=== PATIENT | male | born 1940 | race Caucasian/White ===

== ENCOUNTER 2017-06-01 10:38 | Observation (INO) ==
--- NOTE | 2017-06-01 11:28 | Emergency Department Report ---
General Adult HPI - General Chief complaint: Nausea/Vomiting/Diarrhea Stated complaint: weakness, not eating Time Seen by Provider: 06/01/17 11:28 Source: patient, family Mode of arrival: ambulatory Limitations: no limitations - History of Present Illness HPI narrative: Patient is a 76-year-old male presents emergency room for evaluation of continued nausea, weakness, not eating well. Patient's been having a 2 to three -week history of increasing nausea after eating. Not wanting to eat. Patient was evaluated in the emergency department on Monday, patient was given Zofran with moderate improvement of symptoms laboratories were noncontributory patient was discharged home follow-up with his primary medical physician. Patient did follow-up with his primary medical physician on Monday with continued symptoms with minimal improvement, primary medical physician advised patient to start drinking in sure and chicken broth and to not eat solid foods. Patient was given an outpatient appointment with general surgeon for possible EGD. Patient for the past 2 days is been doing nothing been eating and broth and in sure, increasing weakness now difficulty getting out of bed. Patient's states he is so weak he cannot ambulate ambulate. Patient brought to the ER for evaluation vital signs within defined limits. - Related Data Home Medications Medication Instructions Recorded Confirmed Amiloride/Hctz 5/50 [Moduretic 1 tab PO DAILY #0 05/04/12 06/01/17 5/50] Simvastatin 20 mg PO HS #0 05/04/12 06/01/17 Acebutolol [Sectral] 400 mg PO HS 05/28/17 06/01/17 Finasteride [Proscar] 5 mg PO HS 05/28/17 06/01/17 Pantoprazole Tab [Protonix Tab] 40 mg PO DAILY 05/28/17 06/01/17 Phenytoin Cap [Dilantin 100 mg Cap] 200 mg PO AM 05/28/17 06/01/17 Phenytoin Cap [Dilantin 100 mg Cap] 300 mg PO HS 05/28/17 06/01/17 Tamsulosin [Flomax] 0.4 mg PO DAILY 05/28/17 06/01/17 Clotrimazole/Betamethasone 1 applicatio TOP BID 06/01/17 06/01/17 [Lotrisone Cream] Ondansetron [Zofran Odt] 4 mg PO Q4HR PRN 06/01/17 06/01/17 Simethicone [Gas-X] 125 mg PO DAILY 06/01/17 06/01/17 Allergies Allergy/AdvReac Type Severity Reaction Status Date / Time No Known Allergies Allergy Verified 06/01/17 11:06 Review of Systems Constitutional: Reports: weakness. Denies: fever, chills ENT: Denies: throat pain Cardiovascular: Denies: chest pain, palpitations, dyspnea on exertion Respiratory: Denies: cough, dyspnea, wheezes Gastrointestinal: Reports: nausea. Denies: abdominal pain, vomiting Genitourinary: Denies: dysuria, frequency Musculoskeletal: Denies: back pain Neurological: Denies: headache Psychiatric: Denies: anxiety Endocrine: Denies: fatigue PFSH Patient Stated Medical History Other HEENT Yes: glasses Hiatal Hernia Yes Clinic Medical History (Last Updated 06/01/17 @ 15:34 by Jamel Patel MD) Arthritis (Acute Medical) Hiatal hernia (Acute Medical) Hyperlipidemia (Acute Medical) Hypertension (Acute Medical) Prostate cancer metastatic to bone (Acute Medical) Urologist: Dr. Collado Seizure disorder (Acute Medical) Skin cancer (Acute Medical) Family History: Family History (Last Updated 06/01/17 @ 17:21 by Altagracia Salazar MD) Father Stroke CAD (coronary artery disease) Mother Cancer of female organs Cancer of lung - Social History Smoking status: Former smoker Substance use type: does not use Physical Exam - Limitations Limitations: no limitations - General General appearance: alert, in no apparent distress - Eye Eye exam: Present: PERRL, EOMI - ENT ENT exam: Present: normal oropharynx, TM's normal bilaterally - Neck Neck exam: Present: full ROM, trachea midline - Chest Chest inspection: Present: symmetric chest wall rise. Absent: tenderness - Respiratory Respiratory exam: Present: normal lung sounds bilaterally. Absent: respiratory distress, wheezes, stridor - Cardiovascular Cardiovascular exam: Present: regular rate, normal rhythm, normal heart sounds - Abdominal Exam Abdominal exam: Present: soft, normal bowel sounds. Absent: distention, tenderness - Back Exam Back exam: Present: normal inspection - Skin Skin exam: Present: warm, dry - Neurological Exam Neurological exam: Present: alert, oriented X3 - Psychiatric Psychiatric exam: Present: normal affect, normal mood Course Vital Signs Temperature 98.2 F 06/01/17 10:41 Pulse Rate 66 06/01/17 10:41 Respiratory Rate 20 06/01/17 10:41 Blood Pressure 115/69 06/01/17 10:41 Pulse Oximetry 92 06/01/17 10:41 Temperature 98.0 F 06/01/17 13:33 Pulse Rate 60 06/01/17 13:33 Respiratory Rate 18 06/01/17 13:33 Blood Pressure 144/76 H 06/01/17 13:33 Pulse Oximetry 94 06/01/17 13:33 Medical Decision Making - MDM Narrative Medical decision making narrative: Discuss case with Dr. Salazar, patient does have slightly depressed protein levels at this time, she will admit observation status - Medical Records Medical records reviewed: Yes: I reviewed the patient's medical records. - Lab Data Lab results reviewed: Yes: I reviewed the patient's lab results. Result diagrams: 06/01/17 11:54 06/01/17 11:54 Lab Results 06/01/17 06/01/17 06/01/17 Range/Units 11:54 11:54 11:54 WBC 7.2 (4.5-11.0) T/MM3 RBC 4.52 (4.50-5.90) M/MM3 Hgb 15.2 (13.5-17.5) GM/DL Hct 42.5 (41-53) % MCV 94.0 (80-100) UM3 MCH 33.6 (26-34) UUG MCHC 35.8 (31-37) GM/DL RDW Std Deviation 44.0 (36.9-50.2) FL Plt Count 154 (130-400) T/MM3 MPV 9.8 (9.4-12.4) UM3 Immature Gran % (Auto) 0.4 (0.0-0.5) % Neut % (Auto) 72.3 H (33-66) % Lymph % (Auto) 14.5 L (23-45) % [place] % (Auto) 10.9 H (0-9.0) % Eos % (Auto) 1.5 (0-4) % Baso % (Auto) 0.4 (0-2) % Neut # (Auto) 5.2 (1.8-7.7) T/MM3 Lymph # (Auto) 1.1 (1-4.8) T/MM3 [place] # (Auto) 0.8 (0-0.8) T/MM3 Eos # (Auto) 0.1 (0-0.5) T/MM3 Baso # (Auto) 0.0 (0-0.2) T/MM3 Abs Immat Gran (auto) 0.03 (0.00-0.03) T/MM3 Turbidity < 20 (0-20) Sodium 136 (134-144) MEQ/L Potassium 3.7 (3.6-5) MEQ/L Chloride 97 L (98-107) MEQ/L Carbon Dioxide 29 (22-30) MEQ/L Anion Gap 10 (5-15) meq/L BUN 13.0 (9-20) MG/DL Creatinine 0.6 L (0.8-1.5) mg/dL GFR Calculation 130 BUN/Creatinine Ratio 22 (6-26) RATIO Glucose 117 H (75-110) MG/DL Calculated Osmolality 263 (261-280) MOSM/KG Calcium 8.7 (8.4-10.2) MG/DL Total Bilirubin 0.40 (0.20-1.30) MG/DL Icterus Index < 2 (0-7) AST 22 (17-59) U/L ALT 22 (1-50) U/L Alkaline Phosphatase 142 H (38-126) U/L Total Protein 6.1 L (6.3-8.2) g/dL Albumin 3.8 (3.5-5.0) g/dL Globulin 2.3 L (2.4-3.6) G/DL Albumin/Globulin Ratio 1.7 (1.1-2.2) RATIO Lipase 206 (23-300) U/L Specimen Hemolysis < 15 (0-25) Phenytoin 19.8 (10-20) UG/ML Disposition Clinical Impression: WEAKNESS Disposition: 02 To [facility] Condition: Stable - Seen By: physician
[2017-06-01] MEDS ORDERED: NS 1,000 ML IV ONE (11:39)
[2017-06-01] MEDS ORDERED: METOCLOPRAMIDE 10mg/2ml INJECTION IVP ONE (11:39)
[2017-06-01] MEDS ORDERED: SALINE FLUSH 10ml SYRINGE IVF PRN (11:39)
[2017-06-01 13:40] VITALS: BMI 26.7
[2017-06-01] MEDS ORDERED: METOCLOPRAMIDE 10mg/2ml INJECTION IVP PRN (15:15)
[2017-06-01] MEDS ORDERED: SIMETHICONE 125 MG CAPSULE PO PRN (15:24)
--- NOTE | 2017-06-01 15:40 | General Surgery Consult Note ---
Consult date: 06/01/17 Attending Physician: Altagracia Salazar MD Reason for consult: other (early satiety) [facility] Medical History (Last Updated 06/01/17 @ 15:34 by Jamel Patel MD) Arthritis (Acute Medical) Hiatal hernia (Acute Medical) Hyperlipidemia (Acute Medical) Hypertension (Acute Medical) Prostate cancer metastatic to bone (Acute Medical) Urologist: Dr. Collado Seizure disorder (Acute Medical) Skin cancer (Acute Medical) Surgical History: * Prostate radiation seed placement. * Prostate biopsy - 12/2015. * Laparoscopic cholecystectomy - 05/08/[address] Loving. * Colonoscopy - 05/02/[address] Loving. * Laparotomy - 05/05/1994 exploratory laparotomy with release of small bowel obstruction. * Right inguinal hernia repair - 08/25/[address] Jim Dickerson. * Vasectomy - 1980 - Social History Smoking status: Former smoker Substance use type: does not use Alcohol intake frequency: former alcohol drinker Social history: . 5 children (plus 4 step children - 2 now ). Daughter - Katie Gonzalez (DPOA), Son - Domenic Manuel (Scott) (DPOA). PCP - Dr. Beebe Medications Home Medications Medication Instructions Recorded Confirmed Type Amiloride/Hctz 5/50 [Moduretic 1 tab PO DAILY #0 05/04/12 06/01/17 History 5/50] Simvastatin 20 mg PO HS #0 05/04/12 06/01/17 History Acebutolol [Sectral] 400 mg PO HS 05/28/17 06/01/17 History Finasteride [Proscar] 5 mg PO HS 05/28/17 06/01/17 History Pantoprazole Tab [Protonix Tab] 40 mg PO DAILY 05/28/17 06/01/17 History Phenytoin Cap [Dilantin 100 mg Cap] 200 mg PO AM 05/28/17 06/01/17 History Phenytoin Cap [Dilantin 100 mg Cap] 300 mg PO HS 05/28/17 06/01/17 History Tamsulosin [Flomax] 0.4 mg PO DAILY 05/28/17 06/01/17 History Clotrimazole/Betamethasone 1 applicatio TOP BID 06/01/17 06/01/17 History [Lotrisone Cream] Ondansetron [Zofran Odt] 4 mg PO Q4HR PRN 06/01/17 06/01/17 History Simethicone [Gas-X] 125 mg PO DAILY 06/01/17 06/01/17 History Allergies Allergy/AdvReac Type Severity Reaction Status Date / Time No Known Allergies Allergy Verified 06/01/17 11:06 Review of Systems 10-point ROS: negative except for HPI and the following: - Musculoskeletal Musculoskeletal: Present: joint pain - Neurological Neurological: Present: seizures - Vital Signs Last Vital Signs Temp 98.0 F 06/01/17 13:33 Pulse 60 06/01/17 13:33 Resp 18 06/01/17 13:33 BP 144/76 H 06/01/17 13:33 Pulse Ox 94 06/01/17 13:33 - Laboratory Result Diagrams: 06/01/17 11:54 06/01/17 11:54 Hospital Course Summary Disclaimer: The visit summary below is not to be considered part of the above Progress Note.
[2017-06-01] MEDS: PANTOPRAZOLE 40 MG INJECTION IVP SCH (15:53)
[2017-06-01] MEDS: LR 1,000 ML IV SCH ×2 (15:53→23:39)
--- NOTE | 2017-06-01 19:12 | History & Physical Report ---
History of Present Illness Date: 06/01/17 Chief complaint: nausea/dry heaves HPI: Mr. Manuel is a 76 yo male with hx of metastatic prostate Ca who has a 3 week history of feeling uncomfortable after eating. He describes a sensation of discomfort in the upper abdomen without indigestion or pain; he feels as though he is excessively full and that food sits in his stomach and doesn't move forward. He was unsure if he was constipated and tried of bottle of mag citrate one week ago resulting in diarrhea but no change in abdominal symptoms. He's decreased oral intake to minimize this sensation without relief. 4 days prior to admission he was able to eat breakfast without difficulty but subsequently developed nausea and recurrent dry heaves prompting him to present to the emergency room where he x-rays were obtained and reported to the patient as demonstrating excess gas. He was started on Zofran to control nausea and has been using [id number] simethicone to decrease gas. 3 days ago he was able to eat somewhat; 2 days ago he had recurrent dry heaves and nausea prompting visit with Dr. Beebe at which time converting to a liquid diet was recommended. Yesterday the patient tried liquids in the morning but later ate a few bites of the hamburger and some fries and additional solid food at dinner time without difficulty only to have recurrent nausea and feeling full this morning. His daughter reports that he's had significant weight loss over the past 3 months with 12 pound weight loss over the past couple of weeks. Patient denies indigestion or heartburn. Reports he simply "feels full" all the time. He denies lightheadedness but his daughter reports he was unsteady on his feet this morning. Patient reports urine output and color have remained normal. Daughter reports the patient was lethargic this morning before IV fluids were administered in the emergency room. Patient presented to the emergency room again today due to inability to maintain effective oral intake and was hospitalized for further evaluation. He has a history of peptic ulcer disease previously treated with a PPI the patient discontinued at some point in recent months. He reports that when he had an ulcer he was unable to eat. He has a known hiatal hernia. He denies chronic constipation, diarrhea, melena, rectal bleeding, or hematemesis. Review of Systems All systems PM: 10-point ROS was reviewed, no additional remarkable complaints except (pain in his low back related to metastatic prostate cancer which was diagnosed recently and is being treated with Lupron; moderately severe pain at the left hip which is [id number], a rash on his lower extremities with new lesions identified on the abdomen and back which Dr. Beebe started an antifungal cream for recently. No further positive symptoms were described outside those reported in history of present illness.) Past Medical History Medical History: Medical History (Last Updated 06/01/17 @ 15:34 by Jamel Patel MD) Arthritis Hiatal hernia Hyperlipidemia Hypertension Prostate cancer metastatic to bone Urologist: Dr. Collado Seizure disorder Skin cancer Surgical History: * Prostate radiation seed placement. * Prostate biopsy - 12/2015. * Laparoscopic cholecystectomy - 05/08/[address] Loving. * Colonoscopy - 05/02/[address] Loving. * Laparotomy - 05/05/1994 exploratory laparotomy with release of small bowel obstruction. * Right inguinal hernia repair - 08/25/[address] Jim Dickerson. * Vasectomy - 1980 Family History: Family History (Last Updated 06/01/17 @ 17:21 by Altagracia Salazar MD) Father Stroke CAD (coronary artery disease) Mother Cancer of female organs Cancer of lung Family History: As Above - Social History Smoking status: Former smoker (one pack per day for approximately 50 years, discontinued 15-20 years ago) Substance use type: does not use Alcohol intake frequency: former alcohol drinker Current occupational status: retired (production welder) Social history: PCP-Dr. Beebe DPOA-daughter Katie Gonzalez and son Tyler Manuel DO NOT RESUSCITATE Medications Home Medications Medication Instructions Recorded Confirmed Type Amiloride/Hctz 5/50 [Moduretic 1 tab PO DAILY #0 05/04/12 06/01/17 History 5/50] Simvastatin 20 mg PO HS #0 05/04/12 06/01/17 History Acebutolol [Sectral] 400 mg PO HS 05/28/17 06/01/17 History Finasteride [Proscar] 5 mg PO HS 05/28/17 06/01/17 History Pantoprazole Tab [Protonix Tab] 40 mg PO DAILY 05/28/17 06/01/17 History Phenytoin Cap [Dilantin 100 mg Cap] 200 mg PO AM 05/28/17 06/01/17 History Phenytoin Cap [Dilantin 100 mg Cap] 300 mg PO HS 05/28/17 06/01/17 History Tamsulosin [Flomax] 0.4 mg PO DAILY 05/28/17 06/01/17 History Clotrimazole/Betamethasone 1 applicatio TOP BID 06/01/17 06/01/17 History [Lotrisone Cream] Ondansetron [Zofran Odt] 4 mg PO Q4HR PRN 06/01/17 06/01/17 History Simethicone [Gas-X] 125 mg PO DAILY 06/01/17 06/01/17 History Allergies Allergy/AdvReac Type Severity Reaction Status Date / Time No Known Allergies Allergy Verified 06/01/17 11:06 Exam Vital Signs: Temperature 98.0 F 06/01/17 13:33 Pulse Rate 60 06/01/17 13:33 Respiratory Rate 18 06/01/17 13:33 Blood Pressure 144/76 H 06/01/17 13:33 Pulse Oximetry 94 - RA 06/01/17 13:33 EXAM: General-NAD, alert, fluent speech HEENT-PERRL, EOMI without nystagmus, conjugate gaze, conjunctiva clear, sclera anicteric, facial structures symmetric, oropharynx clear, neck supple and without adenopathy Lungs-respirations nonlabored, good airflow, breath sounds clear Cardiac-regular rhythm, S1-S2 Abd-moderately distended, soft, nontender, bowel sounds present Ext-trace edema bilateral lower extremities Skin-scattered irregular, scaly erythematous plaques measuring 1-2 cm across the lower abdomen; I did not appreciate any on the back or lower extremities Neuro-repetitive lip licking, Psych-anxious, cooperative Height/Weight/BMI: Height 1.78 m Weight 84.5 kg Body Mass Index 26.7 Results - Labs CBC & Chem 7: 06/01/17 11:54 06/01/17 11:54 Labs: Liver enzymes notable only for mild elevation alk phos at 142, lipase 206 Dilantin level 19.8 - Imaging and Cardiology Abdominal x-ray Status: image reviewed by me (abdominal films obtained in the emergency room 4 days ago reviewed by myself demonstrating a large hiatal hernia, increased bowel gas without evidence of obstruction, possible left lower lobe airspace disease/atelectasis.) Assessment and Plan (1) Nausea & vomiting Current visit: Yes Status: Acute (2) Weight loss Current visit: Yes Status: Acute Assessment and Plan: Assessment: Nausea/vomiting Weight loss Hiatal hernia Metastatic prostate cancer, bone metastases diagnosed 03/09 DJD Anxiety hx seizures HTN hx PUD Plan: Patient is hospitalized for hydration and possible EGD. Dr. Patel consulted. X-ray demonstrated a large hiatal hernia may be contributing to symptoms in and of itself. Also has history of peptic disease which presented with inability to eat similar to current presentation. PPI will be resumed with IV administration initially. Clear liquid diet initially, nothing by mouth overnight. Discussed with Dr. Patel who tentatively plans EGD tomorrow. I am concerned that anxiety regarding recent diagnosis of metastatic cancer may be a component in patient's presentation or that metastatic cancer and anorexia associated with cancer may be a factor. Patient has documented 2.8 kg weight loss since 05/28 and patient's daughter describes ongoing weight loss over the past 3 months. Dilantin level does not suggest Dilantin toxicity is a factor so it will be continued as will acebutolol for blood pressure but diuretic/amlodipine combination will be held initially. Patient will return to the care of Dr. Beebe at completion of hospitalization; DO NOT RESUSCITATE order written at patient's request. DVT Prophylaxis: SCD's GI Prophylaxis: Protonix Resuscitation Status: Do Not Resuscitate - Physician Narrative Narrative: Date: 06/01/17 Time: 1905 Hospital Course Summary Disclaimer: The visit summary below is not to be considered part of the above Progress Note. Hospital Course: 06/01/17 Patient is hospitalized for hydration and possible EGD. Dr. Patel consulted. X-ray demonstrated a large hiatal hernia may be contributing to symptoms in and of itself. Also has history of peptic disease which presented with inability to eat similar to current presentation. PPI will be resumed with IV administration initially. Clear liquid diet initially, nothing by mouth overnight. Discussed with Dr. Patel who tentatively plans EGD tomorrow. I am concerned that anxiety regarding recent diagnosis of metastatic cancer may be a component in patient's presentation or that metastatic cancer and anorexia associated with cancer may be a factor. Patient has documented 2.8 kg weight loss since 05/28 and patient's daughter describes ongoing weight loss over the past 3 months. Dilantin level does not suggest Dilantin toxicity is a factor so it will be continued as will acebutolol for blood pressure but diuretic/amlodipine combination will be held initially.
[2017-06-01] MEDS: BETAMETHASONE TOP SCH (20:05)
[2017-06-01] MEDS: CLOTRIMAZOLE TOP SCH (20:05)
[2017-06-01] MEDS: POM TAMSULOSIN 0.4 MG CAPSULE PO SCH (20:05)
[2017-06-01] MEDS ORDERED: ACEBUTOLOL 200 MG PO SCH (21:00)
[2017-06-01] MEDS ORDERED: POM SIMVASTATIN 20 MG TABLET PO SCH (21:00)
[2017-06-01] MEDS ORDERED: FINASTERIDE 5 MG PO SCH (21:00)
[2017-06-01] MEDS ORDERED: PHENYTOIN 100 MG PO SCH (21:00)
[2017-06-02] MEDS: ONDANSETRON 4 MG/2 ML INJECTION IVP PRN ×2 (07:10→13:46)
[2017-06-02] MEDS: PANTOPRAZOLE 40 MG INJECTION IVP SCH (08:16)
[2017-06-02] MEDS: LR 1,000 ML IV SCH ×2 (08:16→18:32)
[2017-06-02] MEDS: BETAMETHASONE TOP SCH (08:16)
[2017-06-02] MEDS: CLOTRIMAZOLE TOP SCH (08:16)
[2017-06-02] MEDS: POM TAMSULOSIN 0.4 MG CAPSULE PO SCH (08:17)
[2017-06-02] MEDS ORDERED: ACEBUTOLOL 200 MG PO SCH (09:00)
[2017-06-02] MEDS ORDERED: PHENYTOIN 100 MG PO SCH (09:00)
[2017-06-02] MEDS: LIDOCAINE 1% 2ml INJ 10 MG, POTASSIUM CHLORIDE INJ 10 MEQ in NS 100 ML IV SCH ×4 (09:36→14:49)
[2017-06-02] MEDS ORDERED: TAMSULOSIN 0.4 MG CAPSULE PO SCH (10:07)
[2017-06-02] MEDS ORDERED: LR 1,000 ML IV SCH (10:45)
--- NOTE | 2017-06-02 11:55 | Progress Note ---
- Date 06/02/17 Subjective: Patient is seen this morning sitting up in the chair. He reports he is feeling better. He's had no abdominal pain/tightness today. He has had clear liquids this morning and states he's having his EGD at noon with Dr. Patel. Last BM was the day before yesterday. No CP, SOA, vomiting or diarrhea. Objective Vital signs: Temperature 97 F 06/02/17 07:13 Pulse Rate 69 06/02/17 07:19 Respiratory Rate 18 06/02/17 07:13 Blood Pressure 149/73 H 06/02/17 07:19 Pulse Oximetry 91 06/02/17 07:19 Height/Weight/BMI: Height 1.78 m Weight 84.6 kg Body Mass Index 26.7 - Constitutional Present: no acute distress, well nourished, well developed - Routine HEENT Exam Head: Present: normocephalic, atraumatic - Routine Respiratory Exam Present: CTA bilaterally. Absent: wheezes - Routine Cardiovascular Exam Present: RRR, no murmur - Routine Abdominal Exam Present: soft, non distended, non tender - Routine Extremities Exam Present: no edema, normal capillary refill - Routine Skin Exam Present: dry, warm - Routine Neurological Exam Present: alert, oriented X3 - Routine Lymphatic Exam Lymphatic: Absent: adenopathy - Routine Psychiatric Exam Present: normal affect, cooperative Results - Labs CBC & Chem 7: 06/02/17 04:45 06/02/17 04:45 Assessment and Plan (1) Weight loss Status: Acute (2) Nausea & vomiting Status: Acute Assessment and Plan: Assessment: Nausea/vomiting Weight loss Hypokalemia - not POA Hiatal hernia Metastatic prostate cancer, bone metastases diagnosed 03/09 DJD Anxiety hx seizures HTN hx PUD Plan: Although patient was not NPO overnight, nurses confirmed with surgeon that he will go ahead with EGD at noon today. KCl 40mEq replaced IV for potassium of 3.2. Further plans to be determined after EGD. - Physician Narrative Physician: Altagracia Salazar MD Narrative: Date: 06/02/17 Time: 2144 Please refer to my note on the discharge summary. Hospital Course Summary Disclaimer: The visit summary below is not to be considered part of the above Progress Note. Hospital Course: 06/01/17 Patient is hospitalized for hydration and possible EGD. Dr. Patel consulted. X-ray demonstrated a large hiatal hernia may be contributing to symptoms in and of itself. Also has history of peptic disease which presented with inability to eat similar to current presentation. PPI will be resumed with IV administration initially. Clear liquid diet initially, nothing by mouth overnight. Discussed with Dr. Patel who tentatively plans EGD tomorrow. I am concerned that anxiety regarding recent diagnosis of metastatic cancer may be a component in patient's presentation or that metastatic cancer and anorexia associated with cancer may be a factor. Patient has documented 2.8 kg weight loss since 05/28 and patient's daughter describes ongoing weight loss over the past 3 months. Dilantin level does not suggest Dilantin toxicity is a factor so it will be continued as will acebutolol for blood pressure but diuretic/amlodipine combination will be held initially. 06/02/17 Although patient was not NPO overnight, nurses confirmed with surgeon that he will go ahead with EGD at noon today. KCl 40mEq replaced IV for potassium of 3.2. Further plans to be determined after EGD.
[2017-06-02] MEDS ORDERED: FAMOTIDINE PB 20 MG/50 ML BAG IV ONE (12:04)
--- NOTE | 2017-06-02 12:10 | Anesthesia Preoperative Report ---
Anesthesia Preoperative Record - Date and Time Date: 06/02/17 Preoperative Diagnosis: weakness,not eatting NPO Since Date: 06/02/17 NPO Since Time: 10:00 (clear liquid diet) Allergies/Adverse Reactions: Allergies Allergy/AdvReac Type Severity Reaction Status Date / Time No Known Allergies Allergy Verified 06/01/17 11:06 - Vital Signs Vital Signs: Temperature 97.8 F 06/02/17 11:48 Pulse Rate 68 06/02/17 11:48 Respiratory Rate 11 06/02/17 11:48 Blood Pressure 163/71 H 06/02/17 11:48 Pulse Oximetry 96 06/02/17 11:48 Height and Weight: Height 1.78 m Weight 84.6 kg Body Mass Index 26.7 - Medications Inpatient Medications: Current Medications Acebutolol HCl (Sectral) 400 mg PO DAILY [facility] Last Admin: 06/02/17 08:16 Dose: 400 mg Betamethasone/Clotrimazole (Lotrisone Cream) 1 applic TOP BID [facility] Last Admin: 06/02/17 08:16 Dose: 1 applic Finasteride (Proscar) 5 mg PO HS [facility] Last Admin: 06/01/17 20:08 Dose: 5 mg Lactated Ringer's (Lactated Ringers) 1,000 mls @ 50 mls/hr IV .Q20H LEXX Last Infusion: 06/02/17 10:44 Dose: 0 mls/hr Lidocaine HCl 10 mg/ Potassium Chloride 10 meq/ Sodium Chloride 100 mls @ 100 mls/hr IV .Q1H LEXX Stop: 06/02/17 13:28 Last Admin: 06/02/17 11:54 Dose: 100 mls/hr Lactated Ringer's (Lactated Ringers) 1,000 mls @ 50 mls/hr IV .Q20H LEXX Last Admin: 06/02/17 11:55 Dose: 50 mls/hr Famotidine/Sodium Chloride (Pepcid Premix) 20 mg in 50 mls @ 100 mls/hr IV PREOP ONE Stop: 06/02/17 12:33 Metoclopramide HCl (Reglan) 5 mg IVP Q6H PRN Ondansetron HCl (Zofran) 4 mg IVP Q6H PRN PRN Reason: Nausea &/or vomiting Last Admin: 06/02/17 07:10 Dose: 4 mg Pantoprazole Sodium (Protonix Iv) 40 mg IVP DAILY [facility] Last Admin: 06/02/17 08:16 Dose: 40 mg Phenytoin Sodium (Dilantin 100 Mg Cap) 200 mg PO DAILY [facility] Last Admin: 06/02/17 08:17 Dose: 200 mg Phenytoin Sodium (Dilantin 100 Mg Cap) 300 mg PO HS [facility] Last Admin: 06/01/17 20:06 Dose: 300 mg Simethicone (Phazyme) 125 mg PO DAILY PRN PRN Reason: Gas Simvastatin (Zocor) 20 mg PO HS [facility] Last Admin: 06/01/17 20:08 Dose: 20 mg Sodium Chloride (Iv Flush) 10 - 80 ml IVF PRN PRN PRN Reason: Flushing Last Admin: 06/01/17 11:56 Dose: 10 ml Tamsulosin HCl (Flomax) 0.4 mg PO DAILY [facility] Last Admin: 06/02/17 10:23 Dose: Not Given Home Medications: Home Medications Medication Instructions Recorded Confirmed Type Amiloride/Hctz 5/50 [Moduretic 1 tab PO DAILY #0 05/04/12 06/01/17 History 5/50] Simvastatin 20 mg PO HS #0 05/04/12 06/01/17 History Acebutolol [Sectral] 400 mg PO HS 05/28/17 06/01/17 History Finasteride [Proscar] 5 mg PO HS 05/28/17 06/01/17 History Pantoprazole Tab [Protonix Tab] 40 mg PO DAILY 05/28/17 06/01/17 History Phenytoin Cap [Dilantin 100 mg Cap] 200 mg PO AM 05/28/17 06/01/17 History Phenytoin Cap [Dilantin 100 mg Cap] 300 mg PO HS 05/28/17 06/01/17 History Tamsulosin [Flomax] 0.4 mg PO DAILY 05/28/17 06/01/17 History Clotrimazole/Betamethasone 1 applicatio TOP BID 06/01/17 06/01/17 History [Lotrisone Cream] Ondansetron [Zofran Odt] 4 mg PO Q4HR PRN 06/01/17 06/01/17 History Simethicone [Gas-X] 125 mg PO DAILY 06/01/17 06/01/17 History Is Patient on Beta Luis F?: Yes Beta Luis F Last Dose Date/Time: 06/01/17 - Medical History Respiratory: Reports: Chronic Obstructive Pulmonary Disease (COPD) ( pressumptive with tobacco abuse history of 50 year alban ) DENIES: Sleep Apnea Cardiovascular: Reports: Hypertension Gastrointestional: Reports: Gastroesophageal Reflux Disease, Hiatal Hernia Neuro/Musculoskeletal: Reports: Seizures (last episode 20 years ago), Other ( mets to bone) Other History: Reports: Cancer (prostate with mets to bone) - Surgical History GI Surgery/Treatments: Reports: Cholecystectomy Surgery/Treatment: REPORT: Other (prostate cancer with mets to bone) Reproductive Surgery/Treatment: Reports: Other (prostate cancer) Anesthesia Reactions: None Hx Family Anesthesia Reaction: No History of Motion Sickness: No - Social History Smoking Status: Former smoker (one pack per day for approximately 50 years, discontinued 15-20 years ago) Packs per day: 1 Pack-years: 50 Substance Use Type: does not use Alcohol Intake Frequency: former alcohol drinker - Pertinent Findings Laboratory: CBC and BMP 06/02/17 04:45 06/02/17 04:45 BMP 06/02/17 04:45 Sodium 138 Potassium 3.2 L Chloride 99 Carbon Dioxide 30 BUN 8.0 L Creatinine 0.6 L Glucose 107 Calcium 8.2 L Liver Function 06/02/17 Range/Units 04:45 Albumin 3.4 L (3.5-5.0) g/dL EKG: Sinus Dysrhythmia - Physical Exam Respiratory Exam: Present: lungs clear, bilateral breath sounds equal Cardiovascular Exam: Present: regular rate and rhythm - Airway Assessment Mallampati Score: II TMD: 3 Fingerbreadths Neck Extension: fair Teeth: chipped teeth/crowns, poor dentation Overall Assessment: no airway concerns - ASA ASA Score: 3 - Plan Anesthesia: General TIVA - Discussion Discussion: Discussed risks/options/alternatives of anesthesia and questions answered. Patient consents. Nursing pain assessment noted. Present for Discussion: family member Attestation Statement: Prior to the delivery of any anesthetic medication, I examined the patient, developed the plan, obtained the patient's consent and discussed the risk and benefits of the procedure with the patient/guardian. - Additional Information Seen by Anesthesia: Yes
[2017-06-02] MEDS ORDERED: LIDOCAINE VISCOUS 2% ORAL LIQUID 15ml ONE (13:56)
[2017-06-02] MEDS ORDERED: LIDOCAINE VISCOUS 2% ORAL LIQUID 15ml PO ONE (14:08)
--- NOTE | 2017-06-02 14:30 | General Surgery Procedure Note ---
Date of Procedure: 06/02/17 Surgeon: Amanda Anesthesia: General TIVA ASA Score: 3 Postoperative Diagnosis: Hiatal hernia, minimal antral gastritis Procedure: EGD with antral bx for MONO and histology
--- NOTE | 2017-06-02 14:36 | Anesthesia Postoperative Note ---
- Date and Time Date: 06/02/17 Time: 14:36 - Status Patient Participated in Evaluation: Patient Participated in Person Vital Signs: Temperature 97.8 F 06/02/17 11:48 Pulse Rate 68 06/02/17 11:48 Respiratory Rate 11 06/02/17 11:48 Blood Pressure 163/71 H 06/02/17 11:48 Pulse Oximetry 96 06/02/17 11:48 Respiratory Function: Airway Patent Cardiovascular Function: Regular Pulse EKG: Sinus Rhythm Mental Status: Alert and Oriented Pain Intensity: 0 Hydration: Taking PO Fluids Complications During Recover: None Apparent - Follow-Up Instructions Instructions: Per Surgeon
[2017-06-02 14:44] VITALS: TEMP 97.3
--- NOTE | 2017-06-02 17:24 | Consultation ---
DATE OF CONSULTATION 06/01/2017 CONSULTING PHYSICIAN Jamel Patel MD REQUESTING PHYSICIAN Dr. Salazar REASON FOR CONSULTATION Early satiety. IMPRESSION 1. Early satiety of uncertain etiology. 2. Prostate cancer with bony metastases. 3. Weight loss. 4. Hiatal hernia. RECOMMENDATIONS 1. To most definitively investigate Domenic's early satiety I do think that an esophagogastroduodenoscopy would be a reasonable plan for workup. 2. N.p.o. at midnight. 3. I will plan on esophagogastroduodenoscopy tomorrow. 4. I discussed an upper GI with small-bowel follow-through as an alternative to endoscopy. The patient and his children were more interested in endoscopy. HISTORY OF PRESENT ILLNESS Domenic was in the emergency department on 05/28/2017. He was given a prescription for Zofran and Gas-X for investigation. He does have a history of prostate cancer with bony metastases. He followed up with Dr. Beebe (his PCP) and he had an outpatient referral to see me in clinic tomorrow. Domenic has felt like he has had trouble after eating. His daughter says that he has also had some trouble after drinking. The patient says that he "gets tired " after eating and has some symptoms in the left upper quadrant. He feels full and bloated. His symptoms usually resolve in an hour. He rates the symptoms as minimal in nature. He was taking MiraLAX to help with constipation but he had diarrhea so he stopped taking the MiraLAX and has had some normal formed bowel movements. His last bowel movement was yesterday. He does report having a lot of flatus. PAST MEDICAL HISTORY, PAST SURGICAL HISTORY, MEDICATIONS, ALLERGIES, SOCIAL HISTORY, FAMILY HISTORY, VITAL SIGNS, REVIEW OF SYSTEMS, LABORATORY DATA See electronic consultation note. PHYSICAL EXAMINATION GENERAL: The patient is awake and alert, in no acute distress. HEENT: Sclerae clear. Extraocular muscles intact. NECK: Supple with a midline trachea. No lymphadenopathy or thyromegaly are noted. HEART: Regular rate and rhythm. LUNGS: Clear to auscultation bilaterally. ABDOMEN: Soft, nontender, nondistended. No masses, fluid, organomegaly, guarding or rebound are noted. EXTREMITIES: No clubbing, cyanosis or edema. NEUROLOGIC: Cranial nerves II-XII are grossly intact. PSYCHIATRIC: Normal mood and affect. PATIENT EDUCATION The details, risks and benefits of esophagogastroduodenoscopy were discussed with the patient and his son and daughter (DPOA). The discussion included but was not limited to bleeding, perforation, aspiration, complications of anesthesia, and possible nondiagnostic nature of the test. The patient voiced understanding and did wish to proceed with endoscopy. AMY
[2017-06-02 17:36] VITALS: PULSE 61; RESP 12
[2017-06-02 18:24] VITALS: BP 141/71; O2SAT 96
--- NOTE | 2017-06-02 19:03 | Discharge Summary ---
Discharge Information Date of admission: 06/01/17 13:26 Anticipated date of discharge: 06/02/17 Attending Physician: Altagracia Salazar MD Primary care physician: Lupillo Brennan II, MD Consults: Consulting Provider: Jamel Patel - Discharge Diagnosis (1) Weight loss Status: Acute (2) Nausea & vomiting Status: Acute Nausea/vomiting Weight loss Hypokalemia - not POA Hiatal hernia Metastatic prostate cancer, bone metastases diagnosed 03/09 DJD Anxiety hx seizures HTN hx PUD - Procedures Procedures: EGD by Dr. Patel 06/02/17 - hiatal hernia and mild antral gastritis. H pylori pending. - Laboratory Labs: On admission (06/01/17) hemoglobin 15.2 and BUN 13; liver enzymes normal other than alkaline phosphatase 142; lipase 206. Dilantin level 19.8. 06/02/17 04:45 06/02/17 04:45 History of Present Illness HPI: Mr. Manuel is a 76 yo male with hx of metastatic prostate Ca who has a 3 week history of feeling uncomfortable after eating. He describes a sensation of discomfort in the upper abdomen without indigestion or pain; he feels as though he is excessively full and that food sits in his stomach and doesn't move forward. He was unsure if he was constipated and tried of bottle of mag citrate one week ago resulting in diarrhea but no change in abdominal symptoms. He's decreased oral intake to minimize this sensation without relief. 4 days prior to admission he was able to eat breakfast without difficulty but subsequently developed nausea and recurrent dry heaves prompting him to present to the emergency room where he x-rays were obtained and reported to the patient as demonstrating excess gas. He was started on Zofran to control nausea and has been using [id number] simethicone to decrease gas. 3 days ago he was able to eat somewhat; 2 days ago he had recurrent dry heaves and nausea prompting visit with Dr. Brennan at which time converting to a liquid diet was recommended. Yesterday the patient tried liquids in the morning but later ate a few bites of the hamburger and some fries and additional solid food at dinner time without difficulty only to have recurrent nausea and feeling full this morning. His daughter reports that he's had significant weight loss over the past 3 months with 12 pound weight loss over the past couple of weeks. Patient denies indigestion or heartburn. Reports he simply "feels full" all the time. He denies lightheadedness but his daughter reports he was unsteady on his feet this morning. Patient reports urine output and color have remained normal. Daughter reports the patient was lethargic this morning before IV fluids were administered in the emergency room. Patient presented to the emergency room again today due to inability to maintain effective oral intake and was hospitalized for further evaluation. He has a history of peptic ulcer disease previously treated with a PPI the patient discontinued at some point in recent months. He reports that when he had an ulcer he was unable to eat. He has a known hiatal hernia. He denies chronic constipation, diarrhea, melena, rectal bleeding, or hematemesis. Objective Vital signs: See progress note dated today for exam. Height/Weight/BMI: Height 1.78 m Weight 84.6 kg Body Mass Index 26.7 Hospital Course This is a general summary of the patient's hospital course. For more details refer to the complete medical record. Hospital course: 06/01/17 Patient is hospitalized for hydration and possible EGD. Dr. Patel consulted. X-ray demonstrated a large hiatal hernia may be contributing to symptoms in and of itself. Also has history of peptic disease which presented with inability to eat similar to current presentation. PPI will be resumed with IV administration initially. Clear liquid diet initially, nothing by mouth overnight. Discussed with Dr. Patel who tentatively plans EGD tomorrow. I am concerned that anxiety regarding recent diagnosis of metastatic cancer may be a component in patient's presentation or that metastatic cancer and anorexia associated with cancer may be a factor. Patient has documented 2.8 kg weight loss since 05/28 and patient's daughter describes ongoing weight loss over the past 3 months. Dilantin level does not suggest Dilantin toxicity is a factor so it will be continued as will acebutolol for blood pressure but diuretic/amlodipine combination will be held initially. 06/02/17 Dismiss home today. Symptoms improved post-EGD and patient able to eat dinner. EGD showed hiatal hernia and mild antral gastritis. H pylori pending. KCl 40mEq replaced IV for potassium of 3.2. Resume Protonix for gastritis. Start mirtazipine for anxiety. Use metoclopramide PRN nausea or early satiety. F-u with Dr. Brennan next week. Time spent with patient: discharge greater than 30 minutes Resuscitation Status: Do Not Resuscitate Discharge Plan - Discharge Disposition Discharge Date: 06/02/17 Disposition: 01 Discharged Home, Self-Care *Condition: Stable Reason For Visit (Visit label in EMR): weakness,not eating - Discharge Medications *Discharge Medications: New Mirtazapine [Remeron] 15 mg PO HS #30 tab Metoclopramide [Reglan] 5 mg PO QID PRN #30 tab PRN Reason: Nausea Continue Amiloride/Hctz 5/50 [Moduretic 5/50] 1 tab PO DAILY #0 Simvastatin 20 mg PO HS #0 Phenytoin Cap [Dilantin 100 mg Cap] 300 mg PO HS Tamsulosin [Flomax] 0.4 mg PO DAILY Acebutolol [Sectral] 400 mg PO HS Finasteride [Proscar] 5 mg PO HS Clotrimazole/Betamethasone [Lotrisone Cream] 1 applicatio TOP BID Ondansetron [Zofran Odt] 4 mg PO Q4HR PRN PRN Reason: Nausea Simethicone [Gas-X] 125 mg PO DAILY Pantoprazole Tab [Protonix Tab] 40 mg PO DAILY #30 tab Phenytoin Cap [Dilantin 100 mg Cap] 200 mg PO AM - Discharge Packet/Instructions *Diet: As tolerates, add Ensure or other nutritional supplements to get extra calories *Activity: As tolerate *Pain Management/Treatment: Tylenol as needed *Wound Care: Not applicable Additional Instructions: Resume use of pantoprazole 40 mg daily for gastritis. Start taking mirtazapine 15 mg at bedtime to help stimulate your appetite and help with anxiety. Try metoclopramide before meals if you feel a little nausea- it can help food move through your stomach into the intestines more efficiently. *Expected Signs/Symptoms: Variable appetite, hiatal hernia may be affecting your sense of fullness. *Notify Physician if: Recurrent vomiting, lightheadedness, passing out, bloody emesis *During Business Hours Contact: Dr. Brennan's office *After Business Hours Contact: Call [facility] at [phone] and ask that the on-call physician be paged *Pending Lab/Results: No Pending Lab - Referrals/Follow Up *Referrals/Follow Up: Lupillo Brennan II, MD [Primary Care Provider] - 1 Week (FOLLOW UP APPOINTMENT WITH DR. BRENNAN ON 06/09/2017 AT 9:30 AM OFFICE NUMBER [phone]) - Patient Handouts Patient Handouts: Gastritis (GEN), Gastroparesis (GEN) - Dismissal Complete Discharge Instructions are:: Complete Physician Narrative - Narrative Physician: Altagracia Salazar MD Attestation Narrative: Date: 06/02/17 Time: 2104 I have independently evaluated and examined this patient. I reviewed the chart, the patient's history, and the REGISTERED NURSE SURGICAL SERVICES/PA's documented findings as above. We discussed and formulated the assessment and plan as above with additions as below: Mr. Manuel seen several times throughout the day. He reported ongoing sensation of fullness in his stomach this morning and some discomfort in the left upper quadrant like something was "caught under the rib cage". He ignored increased anxiety and poor sleep with tendency to worry about things at night. Post-EGD he was more upbeat and was able to eat a full meal at dinner with good tolerance. Abdomen is soft, mildly distended, minimally tender in the left upper quadrant without guarding, bowel sounds are present Results of endoscopy discussed with Dr. Patel; continue Protonix daily at discharge for gastritis; will also add metoclopramide for possible gastroparesis dosing it when necessary initially. Finally have initiated mirtazapine for anorexia and probable anxiety/depression which I suspect is a significant component of patient's presenting symptoms. Patient to follow-up with Dr. Brennan in approximately one week.
--- NOTE | 2017-06-03 09:48 | Operative Note ---
DATE OF OPERATION 06/02/2017 SURGEON Jamel Patel MD PREOPERATIVE DIAGNOSES 1. Early satiety. 2. Prostate cancer with bony metastases. 3. Hiatal hernia. POSTOPERATIVE DIAGNOSES 1. Mild antral gastritis. 2. Large sliding hiatal hernia with no evidence of obstruction. 3. Prostate cancer with bony metastases. 4. Early satiety - uncertain etiology. PROCEDURE Esophagogastroduodenoscopy with antral biopsies for MONO testing and histology. ANESTHESIA TIVA ASA Class 3 INDICATIONS The patient is a 76-year-old male who was admitted to the hospital for trouble with oral intake and weight loss. He does have a history of metastatic prostate cancer. He was having some left upper quadrant symptoms and bloating following meals and so esophagogastroduodenoscopy was recommended to him for investigation. FINDINGS There was a large sliding hiatal hernia with a fairly significant portion of the stomach up above the diaphragm but there was no stricture at the level of the diaphragmatic hiatus. There was very minimal irritation at the antrum. The duodenum was normal. The esophagus was normal. DESCRIPTION OF PROCEDURE After informed consent was obtained the patient was taken to the endoscopy suite and placed in left lateral decubitus position. IV anesthesia was administered by the anesthesia team. A bite block was inserted followed by an Olympus video gastroscope. The gastroscope was advanced down to the second portion of the duodenum under direct vision. The scope was slowly withdrawn, examining the mucosa circumferentially. In the antrum a biopsy was taken for MONO testing. Additional biopsies of the irritated areas were taken and were sent to Pathology. The scope was retroflexed in the body of the stomach as well as within the hiatal hernia. No other abnormalities were noted. The scope was withdrawn into the esophagus and the Z-line was sharp. The esophagus was normal during removal of the scope. RECOMMENDATIONS 1. Await pathology results and MONO test. 2. No significant etiology was discovered for the patient's left upper quadrant symptoms. [facility]
== END 2017-06-02 18:35 | disposition home or self-care (01) ==
LOC: MED 10:38 → ED 10:38 → MED 13:15
PROVIDERS: ADMIT Internal Medicine; ATTEND Internal Medicine
PROC: END.EGD (2017-06-02 14:00)